=== PATIENT | female | born 1960 | race Caucasian/White ===

== ENCOUNTER 2016-06-14 10:34 | Emergency (ER) | payer OTHER ==
[~2016-06-14] VITALS: Ht 165.1 cm; Wt 78.5 kg
[2016-06-14 12:48] VITALS: BP 118/82
== END 2016-06-14 12:48 | disposition home or self-care (01) ==
LOC: ED 10:34
DX: M79.602 Pain in left arm (principal); R20.8 Other disturbances of skin sensation; R03.0 Elevated blood-pressure reading, without diagnosis of hypertension; E03.9 Hypothyroidism, unspecified; I10 Essential (primary) hypertension

== ENCOUNTER 2016-06-17 10:09 | Emergency (ER) | payer OTHER ==
[~2016-06-17] VITALS: Ht 165.1 cm; Wt 78.0 kg
[2016-06-17 10:47] LABS: microscopic required? NO
[2016-06-17 11:00] LABS: BASOPHIL % 0.6 % (0-2); PLATELET COUNT 281 x10^3mcL (130-400); RED CELL DISTRIBUTION WIDTH 12.2 % (11.5-14.5)
[2016-06-17 11:02] LABS: CALCIUM 9.8 mg/dL (8.5-10.1); CARBON DIOXIDE 31.5 mmol/L (21-32); CHLORIDE SERUM 106 mmol/L (98-107); CREATININE SERUM 0.7 mg/dL (0.6-1.0); GFR1 > 60 mL/min; GLUCOSE SERUM 79 mg/dL (74-106); POTASSIUM SERUM 4.9 mmol/L (3.5-5.1); SODIUM SERUM 142 mmol/L (136-145)
[2016-06-17 11:05] LABS: urine erythrocyte NEGATIVE (NEGATIVE)
[2016-06-17 11:09] LABS: ALBUMIN 4.1 g/dL (3.4-5.0); ALKALINE PHOSPHATASE 84 U/L (46-116); ALT/SGPT 25 U/L (14-59); AST/SGOT 20 U/L (15-37); BILIRUBIN TOTAL 0.35 mg/dL (0.20-1.00); TOTAL PROTEIN, SERUM 7.5 g/dL (6.4-8.2)
[2016-06-17 14:03] VITALS: BP 124/80
== END 2016-06-17 14:03 | disposition home or self-care (01) ==
LOC: ED 10:09
PROVIDERS: Emergency Medicine
DX: R10.9 Unspecified abdominal pain (principal); R39.81 Functional urinary incontinence; I10 Essential (primary) hypertension; E07.9 Disorder of thyroid, unspecified
CPT/HCPCS: J1885

== ENCOUNTER 2016-06-30 11:44 | Emergency (ER) | payer OTHER ==
[~2016-06-30] VITALS: Ht 165.1 cm; Wt 77.2 kg
[2016-06-30 15:32] VITALS: BP 134/88
== END 2016-06-30 15:32 | disposition home or self-care (01) ==
LOC: ED 11:44
DX: G44.209 Tension-type headache, unspecified, not intractable (principal); M50.322 Other cervical disc degeneration at C5-C6 level; M50.323 Other cervical disc degeneration at C6-C7 level; I10 Essential (primary) hypertension; E03.9 Hypothyroidism, unspecified; V49.9XXA Car occupant (driver) (passenger) injured in unspecified traffic accident, initial encounter; Y93.89 Activity, other specified; Y99.8 Other external cause status; Y92.89 Other specified places as the place of occurrence of the external cause

== ENCOUNTER 2016-07-03 19:40 | Emergency (ER) | payer OTHER ==
[~2016-07-03] VITALS: Ht 165.1 cm; Wt 79.8 kg
[2016-07-03 22:07] VITALS: BP 142/83
== END 2016-07-03 22:07 | disposition home or self-care (01) ==
LOC: ED 19:40
DX: S09.90XA Unspecified injury of head, initial encounter (principal); X58.XXXA Exposure to other specified factors, initial encounter; Y93.89 Activity, other specified; Y92.89 Other specified places as the place of occurrence of the external cause; Y99.8 Other external cause status; I10 Essential (primary) hypertension; E03.9 Hypothyroidism, unspecified; K21.9 Gastro-esophageal reflux disease without esophagitis
CPT/HCPCS: J1885

== ENCOUNTER 2016-07-07 10:46 | Emergency (ER) | payer OTHER ==
[~2016-07-07] VITALS: Ht 165.1 cm; Wt 77.1 kg
[2016-07-07 11:38] LABS: BASOPHIL % 0.7 % (0-2); PLATELET COUNT 269 x10^3mcL (130-400); RED CELL DISTRIBUTION WIDTH 11.9 % (11.5-14.5)
[2016-07-07 11:49] LABS: CALCIUM 9.9 mg/dL (8.5-10.1); CARBON DIOXIDE 31.8 mmol/L (21-32); CHLORIDE SERUM 104 mmol/L (98-107); CREATININE SERUM 0.6 mg/dL (0.6-1.0); GFR1 > 60 mL/min; GLUCOSE SERUM 89 mg/dL (74-106); POTASSIUM SERUM 4.2 mmol/L (3.5-5.1); SODIUM SERUM 141 mmol/L (136-145)
[2016-07-07 11:54] LABS: ALBUMIN 4.3 g/dL (3.4-5.0); ALKALINE PHOSPHATASE 88 U/L (46-116); ALT/SGPT 40 U/L (14-59); AST/SGOT 33 U/L (15-37); BILIRUBIN TOTAL 0.34 mg/dL (0.20-1.00); CHOLESTEROL 199 mg/dL (<200); TOTAL PROTEIN, SERUM 7.8 g/dL (6.4-8.2); URIC ACID 3.3 mg/dL (2.6-6.0)
[2016-07-07 11:57] LABS: HDL CHOLESTEROL 83 mg/dL (40-60)
[2016-07-07 12:28] VITALS: BP 133/96
== END 2016-07-07 12:45 | disposition home or self-care (01) ==
LOC: ED 10:46
PROVIDERS: Emergency Medicine
DX: R53.1 Weakness (principal); R42 Dizziness and giddiness; I10 Essential (primary) hypertension; E03.9 Hypothyroidism, unspecified
CPT/HCPCS: 83880

== ENCOUNTER 2016-07-12 12:13 | Emergency (ER) | payer OTHER ==
[~2016-07-12] VITALS: Ht 160 cm; Wt 77.6 kg
[2016-07-12 17:30] LABS: BASOPHIL % 0.6 % (0-2); PLATELET COUNT 276 x10^3mcL (130-400); RED CELL DISTRIBUTION WIDTH 12.5 % (11.5-14.5)
[2016-07-12 17:41] LABS: CALCIUM 9.6 mg/dL (8.5-10.1); CARBON DIOXIDE 31.4 mmol/L (21-32); CHLORIDE SERUM 100 mmol/L (98-107); CREATININE SERUM 0.6 mg/dL (0.6-1.0); GFR1 > 60 mL/min; GLUCOSE SERUM 91 mg/dL (74-106); POTASSIUM SERUM 4.1 mmol/L (3.5-5.1); SODIUM SERUM 137 mmol/L (136-145)
[2016-07-12 17:46] LABS: ALBUMIN 4.3 g/dL (3.4-5.0); ALKALINE PHOSPHATASE 94 U/L (46-116); ALT/SGPT 31 U/L (14-59); AST/SGOT 28 U/L (15-37); BILIRUBIN TOTAL 0.4 mg/dL (0.20-1.00); TOTAL PROTEIN, SERUM 7.7 g/dL (6.4-8.2)
[2016-07-12 17:59] LABS: T4(THYROXINE) 11.3 ug/dL (4.7-13.3)
[2016-07-12 20:09] VITALS: BP 125/75
== END 2016-07-12 20:09 | disposition home or self-care (01) ==
LOC: ED 12:13
PROVIDERS: Emergency Medicine
DX: R51 Headache (principal); R11.0 Nausea; R53.83 Other fatigue; E03.9 Hypothyroidism, unspecified; I10 Essential (primary) hypertension
CPT/HCPCS: J1885; J2405; J3010

== ENCOUNTER 2016-07-19 23:51 | Emergency (ER) | payer OTHER ==
[2016-07-20 00:31] LABS: CARBON DIOXIDE 33.1 mmol/L (21-32); CHLORIDE SERUM 102 mmol/L (98-107); CREATININE SERUM 0.8 mg/dL (0.6-1.0); GFR1 > 60 mL/min; GLUCOSE SERUM 100 mg/dL (74-106); POTASSIUM SERUM 4.4 mmol/L (3.5-5.1); SODIUM SERUM 143 mmol/L (136-145)
[2016-07-20 00:34] LABS: BASOPHIL % 0.9 % (0-2); PLATELET COUNT 252 x10^3mcL (130-400); RED CELL DISTRIBUTION WIDTH 12.1 % (11.5-14.5)
[2016-07-20 00:36] LABS: ALBUMIN 4.3 g/dL (3.4-5.0); ALKALINE PHOSPHATASE 98 U/L (46-116); ALT/SGPT 63 U/L (14-59); AST/SGOT 49 U/L (15-37); BILIRUBIN TOTAL 0.3 mg/dL (0.20-1.00); TOTAL PROTEIN, SERUM 7.9 g/dL (6.4-8.2)
[2016-07-20 01:53] VITALS: BP 132/80
== END 2016-07-20 01:53 | disposition home or self-care (01) ==
LOC: ED 23:51
PROVIDERS: Emergency Medicine
DX: R07.9 Chest pain, unspecified (principal); I10 Essential (primary) hypertension; E03.9 Hypothyroidism, unspecified

== ENCOUNTER 2016-07-25 00:33 | Emergency (ER) | payer OTHER ==
[2016-07-25 01:15] VITALS: BP 157/100
== END 2016-07-25 01:15 | disposition home or self-care (01) ==
LOC: ED 00:33
DX: F45.21 Hypochondriasis (principal); I10 Essential (primary) hypertension; E03.9 Hypothyroidism, unspecified; K21.9 Gastro-esophageal reflux disease without esophagitis

== ENCOUNTER 2016-10-02 14:41 | Inpatient (IN) | payer OTHER ==
[~2016-10-02] VITALS: Ht 165.1 cm; Wt 75.5 kg
[2016-10-02 15:27] LABS: BASOPHIL % 1.9 % (0-2); PLATELET COUNT 246 x10^3mcL (130-400); RED CELL DISTRIBUTION WIDTH 12.5 % (11.5-14.5)
[2016-10-02 15:37] LABS: CALCIUM 9.8 mg/dL (8.5-10.1); CARBON DIOXIDE 27.9 mmol/L (21-32); CHLORIDE SERUM 105 mmol/L (98-107); CREATININE SERUM 0.6 mg/dL (0.6-1.0); GFR1 > 60 mL/min; GLUCOSE SERUM 108 mg/dL (74-106); POTASSIUM SERUM 4.5 mmol/L (3.5-5.1); SODIUM SERUM 143 mmol/L (136-145)
[2016-10-02 15:43] LABS: ALBUMIN 3.9 g/dL (3.4-5.0); ALKALINE PHOSPHATASE 98 U/L (46-116); ALT/SGPT 38 U/L (14-59); AST/SGOT 26 U/L (15-37); BILIRUBIN TOTAL 0.27 mg/dL (0.20-1.00); TOTAL PROTEIN, SERUM 7.4 g/dL (6.4-8.2)
[2016-10-02] MEDS ORDERED: HCTZ/LISINOPRIL1 TAB PO (16:02)
[2016-10-02] MEDS ORDERED: PROTONIX20 MG PO (16:02)
[2016-10-02] MEDS ORDERED: LEVOTHYROXINE0.05 M2 PO (16:02)
[2016-10-02] MEDS ORDERED: DOK COLACE100 MG PO (16:03)
[2016-10-02] MEDS ORDERED: ZYRTEC ALLERGY10 MG PO (16:03)
[2016-10-02 16:57] VITALS: BP 160/79
[2016-10-02 16:59] LABS: MAGNESIUM 2.1 mg/dL (1.8-2.4)
[2016-10-02 17:01] LABS: CHOLESTEROL/HDL RATIO 2.3
[2016-10-02 18:05] LABS: microscopic required? NO
[2016-10-02 18:11] LABS: urine erythrocyte NEGATIVE (NEGATIVE)
[2016-10-02 22:46] VITALS: BP 126/70
[2016-10-03 06:11] LABS: BASOPHIL % 0.4 % (0-2); PLATELET COUNT 206 x10^3mcL (130-400); RED CELL DISTRIBUTION WIDTH 12.7 % (11.5-14.5)
[2016-10-03 06:18] VITALS: BP 103/65
[2016-10-03 06:41] LABS: CALCIUM 8.7 mg/dL (8.5-10.1); CARBON DIOXIDE 28.4 mmol/L (21-32); CHLORIDE SERUM 102 mmol/L (98-107); CREATININE SERUM 0.6 mg/dL (0.6-1.0); GFR1 > 60 mL/min; GLUCOSE SERUM 85 mg/dL (74-106); POTASSIUM SERUM 3.8 mmol/L (3.5-5.1); SODIUM SERUM 141 mmol/L (136-145)
[2016-10-03 08:57] VITALS: BP 104/59
[2016-10-03 12:21] VITALS: BP 117/67
[2016-10-03 16:46] VITALS: BP 123/73
[2016-10-03 21:48] VITALS: BP 133/71
[2016-10-04 05:48] VITALS: BP 107/66
[2016-10-04 10:14] VITALS: BP 126/77
[2016-10-04 16:03] VITALS: BP 126/77
[2016-10-04] MEDS ORDERED: ABILIFY5 M1 PO (16:06)
[2016-10-04] MEDS ORDERED: ASPIR 8181 MG PO (16:07)
[2016-10-04] MEDS ORDERED: LIPI10 PO (16:40)
[2016-10-04] MEDS ORDERED: ZES10 PO (16:41)
[2016-10-04] MEDS ORDERED: PROTONIX20 MG PO (16:50)
== END 2016-10-04 19:00 | disposition home or self-care (01) | DRG 243 ==
LOC: ED 14:41 → MU 16:02 → DU 16:02 → MU 10-03 10:32
PROVIDERS: Emergency Medicine; ADMIT Family Medicine
DX: K21.9 Gastro-esophageal reflux disease without esophagitis (principal); I10 Essential (primary) hypertension; E03.9 Hypothyroidism, unspecified; D64.9 Anemia, unspecified
CPT/HCPCS: 83880; 92610; J1885; J7030; Q0092

== ENCOUNTER 2016-10-23 14:00 | Emergency (ER) | payer OTHER ==
[~2016-10-23 14:00] MED LIST: ABILIFY5 M1 PO; ASPIR 8181 MG PO; DOK COLACE100 MG PO; HCTZ/LISINOPRIL1 TAB PO; LEVOTHYROXINE0.05 M2 PO; LIPI10 PO; PROTONIX20 MG PO; ZES10 PO; ZYRTEC ALLERGY10 MG PO
[2016-10-23 15:53] LABS: BASOPHIL % 0.4 % (0-2); PLATELET COUNT 260 x10^3mcL (130-400); RED CELL DISTRIBUTION WIDTH 12.6 % (11.5-14.5)
[2016-10-23 16:18] LABS: CARBON DIOXIDE 30.2 mmol/L (21-32); CHLORIDE SERUM 101 mmol/L (98-107); CREATININE SERUM 0.7 mg/dL (0.6-1.0); GFR1 > 60 mL/min; GLUCOSE SERUM 104 mg/dL (74-106); POTASSIUM SERUM 4.4 mmol/L (3.5-5.1); SODIUM SERUM 139 mmol/L (136-145); TOTAL PROTEIN, SERUM 8.2 g/dL (6.4-8.2)
[2016-10-23 16:19] LABS: ALBUMIN 4.2 g/dL (3.4-5.0); ALKALINE PHOSPHATASE 94 U/L (46-116); ALT/SGPT 25 U/L (14-59); AST/SGOT 20 U/L (15-37); BILIRUBIN TOTAL 0.4 mg/dL (0.20-1.00); CALCIUM 9.8 mg/dL (8.5-10.1)
[2016-10-23 16:34] VITALS: BP 127/82
== END 2016-10-23 16:46 | disposition home or self-care (01) ==
LOC: ED 14:00
PROVIDERS: Emergency Medicine
DX: R07.9 Chest pain, unspecified (principal); I10 Essential (primary) hypertension; K21.9 Gastro-esophageal reflux disease without esophagitis
CPT/HCPCS: 36415; J1885; Q0092

== ENCOUNTER 2016-10-25 09:30 | Emergency (ER) | payer OTHER ==
[2016-10-25 09:34] VITALS: BP 123/81
== END 2016-10-25 11:06 | disposition home or self-care (01) ==
LOC: ED 09:30
DX: K21.9 Gastro-esophageal reflux disease without esophagitis (principal); E03.9 Hypothyroidism, unspecified; E78.00 Pure hypercholesterolemia, unspecified; I10 Essential (primary) hypertension; Z79.899 Other long term (current) drug therapy

== ENCOUNTER 2016-11-10 00:46 | Emergency (ER) | payer OTHER ==
[2016-11-10 03:59] VITALS: BP 128/75
== END 2016-11-10 03:59 | disposition home or self-care (01) ==
LOC: ED 00:46
DX: J30.9 Allergic rhinitis, unspecified (principal); I10 Essential (primary) hypertension; E78.00 Pure hypercholesterolemia, unspecified; Z79.899 Other long term (current) drug therapy

== ENCOUNTER 2016-11-23 09:00 | Emergency (ER) | payer OTHER ==
[~2016-11-23] VITALS: Ht 167.6 cm; Wt 74.8 kg
[2016-11-23 09:02] VITALS: BP 141/75
== END 2016-11-23 09:28 | disposition home or self-care (01) ==
LOC: ED 09:00
DX: J30.9 Allergic rhinitis, unspecified (principal); R03.0 Elevated blood-pressure reading, without diagnosis of hypertension; K59.00 Constipation, unspecified; I10 Essential (primary) hypertension; E78.00 Pure hypercholesterolemia, unspecified; E03.9 Hypothyroidism, unspecified; K21.9 Gastro-esophageal reflux disease without esophagitis

== ENCOUNTER 2017-02-04 15:48 | Emergency (ER) | payer OTHER ==
[~2017-02-04] VITALS: Ht 165.1 cm; Wt 72.6 kg
[2017-02-04 17:52] VITALS: BP 148/95
== END 2017-02-04 17:52 | disposition home or self-care (01) ==
LOC: ED 15:48
DX: G44.209 Tension-type headache, unspecified, not intractable (principal)
CPT/HCPCS: J1885

== ENCOUNTER 2017-02-06 17:18 | Emergency (ER) | payer OTHER ==
[~2017-02-06] VITALS: Ht 165.1 cm; Wt 74.8 kg
[2017-02-06 18:15] VITALS: BP 136/88
== END 2017-02-06 18:15 | disposition home or self-care (01) ==
LOC: ED 17:18
DX: R51 Headache (principal); I10 Essential (primary) hypertension; E03.9 Hypothyroidism, unspecified; E78.00 Pure hypercholesterolemia, unspecified; K21.9 Gastro-esophageal reflux disease without esophagitis; Z79.1 Long term (current) use of non-steroidal anti-inflammatories (NSAID); Z79.899 Other long term (current) drug therapy
CPT/HCPCS: Q0163

== ENCOUNTER 2017-04-18 10:46 | Emergency (ER) | payer OTHER ==
[~2017-04-18] VITALS: Ht 165.1 cm; Wt 71.7 kg
[2017-04-18 11:14] VITALS: BP 127/82; Ht 165.1 cm; Wt 71.7 kg
== END 2017-04-18 13:43 | disposition home or self-care (01) ==
LOC: ED 10:46
DX: J34.89 Other specified disorders of nose and nasal sinuses (principal); M19.90 Unspecified osteoarthritis, unspecified site; I10 Essential (primary) hypertension; E03.9 Hypothyroidism, unspecified; E78.00 Pure hypercholesterolemia, unspecified

== ENCOUNTER 2017-04-18 20:11 | Emergency (ER) | payer OTHER ==
[2017-04-18 22:37] VITALS: BP 149/93
== END 2017-04-18 22:37 | disposition home or self-care (01) ==
LOC: ED 20:11
DX: R51 Headache (principal); I10 Essential (primary) hypertension; E78.00 Pure hypercholesterolemia, unspecified

== ENCOUNTER 2017-04-28 11:12 | Emergency (ER) | payer OTHER ==
[~2017-04-28] VITALS: Ht 167.6 cm; Wt 71.7 kg
[2017-04-28 11:26] VITALS: Ht 167.6 cm; Wt 71.7 kg
[2017-04-28 12:11] VITALS: BP 135/82
== END 2017-04-28 12:11 | disposition home or self-care (01) ==
LOC: ED 11:12
DX: K14.8 Other diseases of tongue (principal); I10 Essential (primary) hypertension; E78.00 Pure hypercholesterolemia, unspecified; K21.9 Gastro-esophageal reflux disease without esophagitis; E03.9 Hypothyroidism, unspecified
CPT/HCPCS: J2930

== ENCOUNTER 2017-04-30 07:46 | Emergency (ER) | payer OTHER ==
[~2017-04-30] VITALS: Ht 165.1 cm; Wt 72.1 kg
[2017-04-30 08:02] VITALS: BP 151/95; Ht 165.1 cm; Wt 72.1 kg
== END 2017-04-30 09:38 | disposition home or self-care (01) ==
LOC: ED 07:46
DX: T78.40XD Allergy, unspecified, subsequent encounter (principal); K21.9 Gastro-esophageal reflux disease without esophagitis; E03.9 Hypothyroidism, unspecified; E78.00 Pure hypercholesterolemia, unspecified; X58.XXXD Exposure to other specified factors, subsequent encounter

== ENCOUNTER 2017-05-24 10:22 | Emergency (ER) | payer OTHER ==
[~2017-05-24] VITALS: Ht 165.1 cm; Wt 72.1 kg
[2017-05-24 10:26] VITALS: Ht 165.1 cm; Wt 72.1 kg
[2017-05-24 11:50] VITALS: BP 138/88
== END 2017-05-24 11:50 | disposition home or self-care (01) ==
LOC: ED 10:22
DX: K14.0 Glossitis (principal); K12.0 Recurrent oral aphthae; I10 Essential (primary) hypertension; E78.00 Pure hypercholesterolemia, unspecified; E03.9 Hypothyroidism, unspecified

== ENCOUNTER 2017-06-20 09:41 | Emergency (ER) | payer OTHER ==
[~2017-06-20] VITALS: Ht 165.1 cm; Wt 73.1 kg
[2017-06-20 09:47] VITALS: BP 142/94
== END 2017-06-20 11:31 | disposition home or self-care (01) ==
LOC: ED 09:41
DX: T78.1XXA Other adverse food reactions, not elsewhere classified, initial encounter (principal); R51 Headache; G89.29 Other chronic pain; M54.9 Dorsalgia, unspecified; I10 Essential (primary) hypertension; E78.00 Pure hypercholesterolemia, unspecified; E03.9 Hypothyroidism, unspecified
CPT/HCPCS: Q0163

== ENCOUNTER 2018-08-03 15:53 | Emergency (ER) | payer OTHER ==
[~2018-08-03] VITALS: Ht 165.1 cm; Wt 81.6 kg
[2018-08-03 16:00] VITALS: Ht 165.1 cm; Wt 81.6 kg
[2018-08-03 16:41] VITALS: BP 160/90
== END 2018-08-03 16:41 | disposition home or self-care (01) ==
LOC: ED 15:53
DX: B37.9 Candidiasis, unspecified (principal); F29 Unspecified psychosis not due to a substance or known physiological condition; I10 Essential (primary) hypertension; K21.9 Gastro-esophageal reflux disease without esophagitis; E03.9 Hypothyroidism, unspecified; E78.00 Pure hypercholesterolemia, unspecified